=== PATIENT | male | born 1990 | race Caucasian/White ===

== ENCOUNTER 2017-04-26 15:21 | Emergency (ER) | payer SELFPAY ==
[2017-04-26 15:33] VITALS: BP 115/75
--- NOTE | 2017-04-26 15:41 | ED Physician Documentation ---
PD HPI UPPER EXT INJURY - Stated complaint Stated Complaint: HAND PX - Chief complaint Chief Complaint: Ext Problem - History obtained from History obtained from: Patient, Family - History of Present Illness Location: Right, Hand Type of injury: Other (punched a wall) Timing - onset: How many days ago (6) Timing - duration: Days (6) Timing - details: Abrupt onset Pain level max: 9 Pain level now: 6 Improved by: Rest, Ice, Immobilization Worsened by: Moving, Palpating Associated symptoms: No: Weakness, Numbness, Tingling, Swelling, Discolored Similar symptoms before: Has not had sx before Recently seen: Not recently seen Review of Systems Constitutional: denies: Fever, Chills Cardiac: denies: Chest pain / pressure Respiratory: denies: Cough GI: denies: Abdominal Pain, Nausea, Vomiting, Diarrhea Skin: denies: Rash Musculoskeletal: denies: Neck pain, Back pain Neurologic: denies: Headache PD PAST MEDICAL HISTORY - Past Medical History Past Medical History: No - Past Surgical History Past Surgical History: Yes - Present Medications Home Medications: Ambulatory Orders Medication Instructions Recorded Confirmed No Known Home Medications [No 04/26/17 04/26/17 Known Home Medications] - Allergies Allergies/Adverse Reactions: Allergies Allergy/AdvReac Type Severity Reaction Status Date / Time amoxicillin trihydrate * Allergy Unknown unknown Verified 01/20/13 17:16 [From Augmentin] potassium clavulanate * Allergy Unknown unknown Verified 01/20/13 17:16 [From Augmentin] - Living Situation Living Situation: reports: With family Living Arrangement: reports: At home - Social History Does the pt smoke?: No Smoking Status: Never smoker Does the pt drink ETOH?: Yes Does the pt have substance abuse?: No - POLST Patient has POLST: No PD ED PE NORMAL - Vitals Vital signs reviewed: Yes - General General: Alert and oriented X 3, No acute distress - Derm Derm: Warm and dry - Extremities Extremities: Other (TTP R hand 4th and 5th MCP joints. NVI. no deformity. o/w normal exam of the R hand and wrist. ) - Neuro Neuro: Alert and oriented X 3 - Psych Psych: Normal mood, Normal affect Results - Vitals Vitals: Vital Signs - 24 hr 04/26/17 15:30 Temperature 36.9 C Heart Rate 114 H Respiratory 16 Rate Blood Pressure 115/75 O2 Saturation 99 Oxygen O2 Source Room air - Rads (name of study) R hand xray Radiology: Prelim report reviewed, EMP read contemporaneously, See rad report ( normal) Procedures - Splint (location) R hand Splint applied by: Physician, Tech Type of splint: Fiberglass, Short arm, Volar cock up Other: Patient tolerated well, No complications, Neurovascular intact PD MEDICAL DECISION MAKING - ED course Complexity details: reviewed results, re-evaluated patient, considered differential, d/w patient ED course: Patient is a 27-year-old male who presents to the emergency department after punching a brick wall several days ago and now complaining of pain to the right hand. No acute findings on x-ray. Placed in a splint for comfort. Neurovascularly intact. Patient counseled regarding signs and symptoms for which I believe and urgent re-evaluation would be necessary. Patient with good understanding of and agreement to plan and is comfortable going home at this time This document was made in part using voice recognition software. While efforts are made to proofread this document, sound alike and grammatical errors may occur. Departure - Departure Disposition: 01 Home, Self Care Clinical Impression: Contusion of hand, right Qualifiers: Encounter type: initial encounter Qualified Code(s): S60.221A - Contusion of right hand, initial encounter Condition: Good Instructions: ED Contusion Hand Follow-Up: your,doctor in 1 week [Other] Comments: You can use motrin or tylenol for pain. Wear the splint for the next 2-3 days and then remove it. Return if you worsen. Forms: Activity restrictions Discharge Date/Time: 04/26/17 16:53
--- NOTE | 2017-04-26 16:23 | XRAY Preliminary Report ---
Exam: XR Hand 3 View RT IMPRESSION: No evidence for acute fracture. [facility] SITE ID: [id number]
--- NOTE | 2017-04-26 16:26 | XRAY Report ---
EXAM: RIGHT HAND RADIOGRAPHY EXAM DATE: 04/26/2017 03:58 PM. CLINICAL HISTORY: Patient punched a wall 6 days ago. Pain in the distal fourth and fifth metacarpals. COMPARISON: Right second digit 02/07/2007. TECHNIQUE: 3 views. FINDINGS: Bones: Small bone island at the trapezium. No evidence for acute fracture. Joints: Normal. No subluxations. Soft Tissues: Normal. No soft tissue swelling. IMPRESSION: No evidence for acute fracture. [facility] Referring Provider Line: [phone] SITE ID: [id number]
== END 2017-04-26 16:53 | disposition home or self-care (01) ==
LOC: ED 15:21
DX: S60.221A Contusion of right hand, initial encounter (principal); W22.09XA Striking against other stationary object, initial encounter
CPT/HCPCS: 29125; 99283

== ENCOUNTER 2018-11-08 07:53 | Emergency (ER) | payer SELFPAY ==
[2018-11-08 08:01] VITALS: BP 133/83
--- NOTE | 2018-11-08 08:06 | ED Physician Documentation ---
History of Present Illness - Stated complaint Stated Complaint: COUGH/THROAT PX - Chief complaint Chief Complaint: Heent - History obtained from History obtained from: Patient - History of Present Illness Pain level max: 2 - Additonal information Additional information: Patient is a previously healthy 28-year-old male who has been battling viral- like symptoms off and on for the past 1-2 months. Patient does report sick contacts and his roommate. Patient reports intermittent nasal congestion, sore throat, and phlegm producing cough.He denies ear pain, sinus pain, significant abdominal pain, vomiting, urinary or stool changes.Patient did not take his temperature, but feels that he did have fever and chills previously.Patient continues to smoke marijuana, although this has decreased since his symptoms began. No other improving or worsening factors noted. Review of Systems Ten Systems: 10 systems reviewed and negative Constitutional: reports: Fever, Chills Ears: denies: Ear pain Nose: reports: Congestion Throat: reports: Sore throat Respiratory: reports: Dyspnea, Cough GI: denies: Abdominal Pain, Vomiting, Diarrhea : denies: Dysuria PD PAST MEDICAL HISTORY - Past Medical History Past Medical History: No - Past Surgical History Past Surgical History: Yes - Present Medications Home Medications: Ambulatory Orders Medication Instructions Recorded Confirmed No Known Home Medications 04/26/17 11/08/18 - Allergies Allergies/Adverse Reactions: Allergies Allergy/AdvReac Type Severity Reaction Status Date / Time amoxicillin trihydrate * Allergy Unknown unknown Verified 11/08/18 08:01 [From Augmentin] potassium clavulanate * Allergy Unknown unknown Verified 11/08/18 08:01 [From Augmentin] - Social History Does the pt smoke?: No Smoking Status: Never smoker Does the pt drink ETOH?: Yes Does the pt have substance abuse?: No Substance Use and Type: Marijuana - POLST Patient has POLST: No PD ED PE NORMAL - General General: Alert and oriented X 3, No acute distress, Well developed/nourished - HEENT HEENT: Atraumatic, Moist mucous membranes, Pharynx benign, Dentition benign, Other (No sinus pain with palpation) - Neck Neck: Supple, no meningeal sign - Cardiac Cardiac: RRR, No murmur - Respiratory Respiratory: No respiratory distress, Clear bilaterally - Abdomen Abdomen: Soft, Non tender, Non distended - Derm Derm: Normal color, Warm and dry, No rash - Extremities Extremities: No deformity - Neuro Neuro: Alert and oriented X 3, No motor deficit, No sensory deficit, Normal speech - Psych Psych: Normal mood, Normal affect Results - Vitals Vitals: Vital Signs - 24 hr 11/08/18 07:58 Temperature 36.4 C L Heart Rate 95 Respiratory 14 Rate Blood Pressure 133/83 H O2 Saturation 99 Oxygen O2 Source Room air PD MEDICAL DECISION MAKING - ED course Complexity details: considered differential, d/w patient ED course: Most concerning for viral illness, bronchitis, URI given patient's duration of symptoms, consolation of symptoms, and physical exam findings. Do not have high suspicion for otitis media, otitis externa, mastoiditis, sinusitis, pharyngitis, tonsillitis, or peritonsillar abscess.Also have lower suspicion for pneumonia, but given patient's concern for possible walking pneumonia as he has had this in the past, offered chest x-ray, which patient declined. Otherwise, do not feel that patient is experiencing systemic illness that require further intervention at this time. Feel that supportive cares and discharge are appropriate. Patient voiced understanding and is comfortable with discharge plan. Departure - Departure Disposition: 01 Home, Self Care Clinical Impression: Viral respiratory illness, Bronchitis Condition: Good Instructions: Bronchitis Acute Dc, ED URI Viral Follow-Up: your,doctor [Other] - Within 3 Days Comments: Recommend supportive cares such as [id number] medications like ibuprofe n/Tylenol, nasal decongestants, Mucinex, DayQuil, NyQuil, Sudafed, used appropriately.Rest and hydration, as well as avoidance of all smoking, including marijuana. Please follow-up with your primary care physician in next 2-3 days and return to ED sooner if experience worsening symptoms or other concerns. Discharge Date/Time: 11/08/18 08:21
== END 2018-11-08 08:21 | disposition home or self-care (01) ==
LOC: ED 07:53
DX: J40 Bronchitis, not specified as acute or chronic (principal); B97.89 Other viral agents as the cause of diseases classified elsewhere
CPT/HCPCS: 99281; 99283

== ENCOUNTER 2021-07-23 08:34 | Emergency (ER) | payer MEDICAID ==
[2021-07-23 08:57] VITALS: BP 129/76
--- NOTE | 2021-07-23 10:00 | ED Physician Documentation ---
PD HPI HEENT - Stated complaint Stated Complaint: EAR PX/PRESSURE - Chief complaint Chief Complaint: Heent - History obtained from History obtained from: Patient - History of Present Illness Timing - onset: How many days ago (2-3) Timing - duration: Days (2-3) Timing - details: Gradual onset Location: Right ear (has had pressure and fullness right ear for 2-3 days, and has yellow drainage the past day. 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 Usually normal hearing. ) - Past Surgical History Past Surgical History: Yes - Present Medications Home Medications: Ambulatory Orders Medication Instructions Recorded Confirmed Cetirizine [ZyrTEC] 10 mg PO DAILY #15 tablet 07/23/21 cephALEXin [Keflex] 500 mg PO TID #20 cap 07/23/21 - Allergies Allergies/Adverse Reactions: Allergies Allergy/AdvReac Type Severity Reaction Status Date / Time amoxicillin trihydrate * Allergy Unknown unknown Verified 07/23/21 08:54 [From Augmentin] potassium clavulanate * Allergy Unknown unknown Verified 07/23/21 08:54 [From Augmentin] - Social History Does the pt smoke?: No Smoking Status: Never smoker Does the pt drink ETOH?: Yes Does the pt have substance abuse?: No - POLST Patient has POLST: No PD ED PE NORMAL - Vitals Vital signs reviewed: Yes - General General: Alert and oriented X 3, No acute distress, Well developed/nourished - HEENT HEENT: Pharynx benign. No: Ears normal (left ear normal, with chronic small hole. some wax in canal. Right ear with fullness and cloudy fluid behind TM, with small hole as well but only minimal drainage appearance in canal. No wax. ) - Neck Neck: Supple, no meningeal sign, No adenopathy Results - Vitals Vitals: Oxygen O2 Source Room air PD MEDICAL DECISION MAKING - ED course Complexity details: considered differential, d/w patient Departure - Departure Disposition: 01 Home, Self Care Clinical Impression: Right otitis media Qualifiers: Otitis media type: suppurative Chronicity: acute Recurrence: non-recurrent Spontaneous tympanic membrane rupture: without spontaneous rupture Qualified Code(s): H66.001 - Acute suppurative otitis media without spontaneous rupture of ear drum, right ear Condition: Stable Record reviewed to determine appropriate education?: Yes Instructions: ED Otitis Media Acute Adult Follow-Up: Salvador Alejandre MD [Primary Care Provider] - Prescriptions: cephALEXin [Keflex] 500 mg PO TID #20 cap Cetirizine [ZyrTEC] 10 mg PO DAILY #15 tablet Comments: You do have fluid collected that looks cloudy/purulent behind the eardrum on the right. The small hole in the eardrum that you have had does look like it would allow for some drainage of the fluid but not freely so some has remained trapped. He received initial dose of antibiotic and antihistamine as well as an anti- inflammatory here. Continue with the antihistamine and antibiotics as prescribed for the ear infection. Tylenol or ibuprofen as needed for pains. I transmitted your prescription to [facility] pharmacy in [place]. Recheck if not improved well over the next several days and resolved by 4 to 5 days. Discharge Date/Time: 07/23/21 10:32
[2021-07-23] MEDS ORDERED: DEXAMETHASONE 10 MG/ML VIAL PO STA (10:09)
[2021-07-23] MEDS ORDERED: cephALEXin 250 MG CAPSULE PO STA (10:09)
[2021-07-23] MEDS ORDERED: CHERRY SYRUP 10 ML UDC PO ONE (10:09)
[2021-07-23] MEDS ORDERED: CETIRIZINE 10 MG TABLET PO STA (10:09)
== END 2021-07-23 10:32 | disposition home or self-care (01) ==
LOC: ED 08:34
DX: H66.001 Acute suppurative otitis media without spontaneous rupture of ear drum, right ear (principal)
CPT/HCPCS: 99282; 99283; A9270

== ENCOUNTER 2022-04-26 00:33 | Emergency (ER) | payer MEDICAID ==
[2022-04-26] MEDS ORDERED: IPRATROPIUM/ALBUTEROL 3 ML NEB INH STA (00:51)
[2022-04-26] MEDS ORDERED: DEXAMETHASONE 10 MG/ML VIAL IM STA (00:51)
--- NOTE | 2022-04-26 00:54 | ED Physician Documentation ---
PD HPI DYSPNEA - Stated complaint Stated Complaint: COUGH, CON'T RESP SX - Chief complaint Chief Complaint: Resp - History obtained from History obtained from: Patient - Additional information Additional information: The patient returns to the emergency department chief complaint of ongoing dyspnea and tight cough for the last approximately 6 days. The patient was seen here about 3 days ago for similar symptoms and at that time, had a negative x- ray and declined to have a viral panel done. The patient had already taken a COVID test prior to coming in and that was negative. The patient states he has not had any fevers or chills and the congestion that he initially had has subsided. However, he still feels as though his breathing is tight and he just keeps having a dry cough. He has been taking the nasal decongestants and cough medicine that he was prescribed, without any improvement. He states he smokes marijuana but not cigarettes. He was apparently diagnosed with asthma as an and young child but has not used an inhaler since. No other complaints at this time. Review of Systems Ten Systems: 10 systems reviewed and negative Constitutional: reports: Reviewed and negative Eyes: reports: Reviewed and negative Ears: reports: Reviewed and negative Nose: reports: Reviewed and negative Throat: reports: Reviewed and negative Cardiac: reports: Reviewed and negative Respiratory: reports: Dyspnea, Cough GI: reports: Reviewed and negative : reports: Reviewed and negative Skin: reports: Reviewed and negative Musculoskeletal: reports: Reviewed and negative Neurologic: reports: Reviewed and negative Psychiatric: reports: Reviewed and negative Endocrine: reports: Reviewed and negative Immunocompromised: reports: Reviewed and negative PD PAST MEDICAL HISTORY - Past Medical History Past Medical History: Yes Cardiovascular: None Respiratory: None Neuro: None Endocrine/Autoimmune: None GI: None : None HEENT: Other Psych: None Musculoskeletal: None Derm: None Other Past Medical History: Smokes marijuana daily but not recently. - Past Surgical History Past Surgical History: Yes - Present Medications Home Medications: Ambulatory Orders Medication Instructions Recorded Confirmed Benzonatate [Tessalon] 200 mg PO TID PRN #30 cap 04/21/22 04/26/22 Oxymetazoline HCl [Afrin] 15 ml NS Q4HR #15 ml 04/21/22 04/26/22 Pseudoephedrine [Sudafed] 30 mg PO Q6H #30 tablet 04/21/22 04/26/22 Albuterol Sulf [Ventolin Hfa 1 - 2 puffs INH Q4HR PRN #1 gm 04/26/22 Inhaler] predniSONE [Deltasone] 60 mg PO DAILY 5 Days #15 tablet 04/26/22 - Allergies Allergies/Adverse Reactions: Allergies Allergy/AdvReac Type Severity Reaction Status Date / Time amoxicillin trihydrate * Allergy Unknown unknown Verified 04/26/22 00:45 [From Augmentin] potassium clavulanate * Allergy Unknown unknown Verified 04/26/22 00:45 [From Augmentin] - Social History Does the pt smoke?: No Smoking Status: Never smoker Does the pt drink ETOH?: Yes Does the pt have substance abuse?: Yes - Immunizations Immunizations are current?: Yes - POLST Patient has POLST: No PD ED PE NORMAL - Vitals Vital signs reviewed: Yes - General General: Alert and oriented X 3, No acute distress, Well developed/nourished, Other (The patient is a frequent short, dry cough, but is in no distress) - HEENT HEENT: Atraumatic, PERRL, EOMI, Moist mucous membranes - Neck Neck: Supple, no meningeal sign - Cardiac Cardiac: RRR, No murmur, Strong equal pulses - Respiratory Respiratory: No respiratory distress, Other (Moderate expiratory wheezes throughout bilateral lower two thirds of lung ren.) - Abdomen Abdomen: Soft, Non tender, Non distended - Derm Derm: Normal color, Warm and dry, No rash - Extremities Extremities: No deformity, No edema - Neuro Neuro: Alert and oriented X 3 - Psych Psych: Normal mood, Normal affect Results - Vitals Vitals: Vital Signs - 24 hr 04/26/22 04/26/22 04/26/22 00:35 01:00 01:29 Temperature 36.6 C Heart Rate 135 H 112 H 109 H Respiratory 24 22 18 Rate Blood Pressure 116/74 121/85 H O2 Saturation 95 93 Oxygen O2 Source Room air PD MEDICAL DECISION MAKING - ED course Complexity details: considered differential, d/w patient ED course: The patient was treated with DuoNeb and Decadron in the emergency department. The patient was clinically improved and displayed improved oxygen saturation. I felt he was stable for discharge home. We have discussed the need to waste picker the inhaler and steroid prescriptions that I have provided for him, and to get on these medications. We have discussed the usual indications for return. Departure - Departure Disposition: 01 Home, Self Care Clinical Impression: Acute bronchospasm Upper respiratory infection Qualifiers: URI type: unspecified viral URI Qualified Code(s): J06.9 - Acute upper respiratory infection, unspecified Condition: Stable Instructions: ED Reactive Airway Disease, ED Viral Syndrome Prescriptions: Albuterol Sulf [Ventolin Hfa Inhaler] 1 - 2 puffs INH Q4HR PRN #1 gm PRN Reason: Shortness Of Air/Wheezing predniSONE [Deltasone] 60 mg PO DAILY 5 Days #15 tablet Comments: You have been treated tonight with a nebulizer treatment and a dose of steroids, and given a prescription for the same which has been electronically transmitted to the [facility] pharmacy in [place]. The underlying cause of this bout of symptoms is a viral illness, but you most likely still have a propensity to spasm of your airways, much like what happens and asthma. The irritation from the infection that you have is most likely triggered your airways to spasm somewhat, causing the ongoing dry cough and shortness of breath. You should use the inhaler every 4 hours to help keep your airways open and also take the steroid every day as directed. This should help relieve the symptoms you are having. Please also do not smoke anything but rather, put only air into your lungs. This will help prevent such symptoms from occurring in the future. Forms: Activity restrictions
[2022-04-26 01:32] VITALS: BP 121/85
== END 2022-04-26 01:35 | disposition home or self-care (01) ==
LOC: ED 00:33
DX: J06.9 Acute upper respiratory infection, unspecified (principal); J98.01 Acute bronchospasm
CPT/HCPCS: 94640; 96372; 99283

== ENCOUNTER 2022-09-09 07:08 | Emergency (ER) | payer MEDICAID ==
[2022-09-09 07:21] VITALS: BP 152/96
--- NOTE | 2022-09-09 08:04 | ED Physician Documentation ---
PD HPI UPPER EXT INJURY - Stated complaint Stated Complaint: RT HAND PX - Chief complaint Chief Complaint: Ext Problem - History obtained from History obtained from: Patient - History of Present Illness Location: Right, Finger (thumb and index) Type of injury: Other (repetative use at work) Where injury occurred: Work Timing - onset: How many weeks ago (2) Timing - duration: Weeks (2) Timing - details: Gradual onset, Still present Improved by: Rest, Immobilization Worsened by: Moving, Palpating Associated symptoms: No: Weakness, Numbness, Tingling, Swelling, Discolored Similar symptoms before: Has not had sx before Recently seen: Not recently seen - Additonal information Additional information: 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 He has had symptoms now for about 2 weeks he is noted that when he was home for the weekend his symptoms improved. His boss is asked him to come in to be evaluated. Review of Systems Constitutional: denies: Fever Respiratory: denies: Cough GI: denies: Vomiting Skin: denies: Rash Musculoskeletal: reports: Extremity pain, Joint pain. denies: Extremity swelling, Joint swelling Neurologic: denies: Generalized weakness, Focal weakness, Numbness PD PAST MEDICAL HISTORY - Past Medical History Cardiovascular: None Respiratory: None Neuro: None Endocrine/Autoimmune: None GI: None : None HEENT: Other Psych: None Musculoskeletal: None Derm: None - Past Surgical History Past Surgical History: Yes - Present Medications Home Medications: Ambulatory Orders Medication Instructions Recorded Confirmed Benzonatate [Tessalon] 200 mg PO TID PRN #30 cap 04/21/22 04/26/22 Oxymetazoline HCl [Afrin] 15 ml NS Q4HR #15 ml 04/21/22 04/26/22 Pseudoephedrine [Sudafed] 30 mg PO Q6H #30 tablet 04/21/22 04/26/22 Albuterol Sulf [Ventolin Hfa 1 - 2 puffs INH Q4HR PRN #1 gm 04/26/22 Inhaler] predniSONE [Deltasone] 60 mg PO DAILY 5 Days #15 tablet 04/26/22 - Allergies Allergies/Adverse Reactions: Allergies Allergy/AdvReac Type Severity Reaction Status Date / Time amoxicillin trihydrate * Allergy Unknown unknown Verified 09/09/22 07:21 [From Augmentin] potassium clavulanate * Allergy Unknown unknown Verified 09/09/22 07:21 [From Augmentin] - Social History Does the pt smoke?: No Smoking Status: Never smoker Does the pt drink ETOH?: Yes Does the pt have substance abuse?: Yes - Immunizations Immunizations are current?: Yes - POLST Patient has POLST: No PD ED PE NORMAL - Vitals Vital signs reviewed: Yes (tachy and hypertensive ) - General General: Alert and oriented X 3, No acute distress, Well developed/nourished - HEENT HEENT: Atraumatic, PERRL, EOMI - Respiratory Respiratory: No respiratory distress - Derm Derm: Normal color, Warm and dry, No rash - Extremities Extremities: No deformity, No edema, Other (There is mild tenderness over the extensor tendon of the thumb extending into the forearm. There is mild tenderness over the dorsum of the hand approximately over the extensor tendon of the finger as well. Distal neurovascular intact.) - Neuro Neuro: Alert and oriented X 3, legal administrative secretary 2-12 intact, No motor deficit, No sensory deficit, Normal speech Eye Opening: Spontaneous Motor: Obeys Commands Verbal: Oriented GCS Score: 15 - Psych Psych: Normal mood, Normal affect Results - Vitals Vitals: Vital Signs - 24 hr 09/09/22 07:19 Temperature 36.8 C Heart Rate 113 H Respiratory 20 Rate Blood Pressure 152/96 H O2 Saturation 98 Oxygen O2 Source Room air - Rads (name of study) hand Radiology: Prelim report reviewed (Impression: No acute radiographic findings. If pain persist, consider repeat imaging in 5 to 7 days to exclude occult fracture.), EMP read indepedently PD Medical Decision Making - ED course Complexity details: reviewed results, re-evaluated patient, considered differential, d/w patient ED course: 30-year-old male with repetitive use injury to his right hand appears to have some tendinitis and he is placed into a thumb spica and given a dose of dexamethasone. I have provided a 5-day work note for the patient. Departure - Departure Disposition: 01 Home, Self Care Clinical Impression: Tendinitis, de Quervain's Condition: Stable Instructions: ED De Quervain Tenosynovitis Follow-Up: [facility] [Provider Group] Comments: Puma today it looks like you have irritated the tendon sheaths to your thumb and forefinger with repetitive use. The recommendation is to decrease the use and we have placed you into a thumb spica splint. We have given you a dose of dexamethasone which should help today in the next 2 days. My recommendation is to take about 5 days off of work and reduce the total amount of time you are doing this repetitive task during the day. Forms: Activity restrictions Discharge Date/Time: 09/09/22 08:24
[2022-09-09] MEDS ORDERED: CHERRY SYRUP 10 ML UDC PO ONE (08:10)
[2022-09-09] MEDS ORDERED: DEXAMETHASONE 10 MG/ML VIAL PO STA (08:10)
--- NOTE | 2022-09-09 08:20 | XRAY Report ---
PROCEDURE: Hand 3 View RT INDICATIONS: Trauma TECHNIQUE: 3 views of the hand(s) acquired. COMPARISON: 3 views of the right hand dated 04/26/2017 FINDINGS: Bones: No fractures or dislocations. No suspicious bony lesions. Soft tissues: No suspicious soft tissue calcifications. IMPRESSION: No acute radiographic findings. If pain persists, consider repeat imaging in 5-7 days to exclude occu lt fracture. Reviewed by: Nidia Garcia MD on 09/09/2022 8:19 AM [facility] Approved by: Nidia Garcia MD on 09/09/2022 8:19 AM [facility] Station ID: [id number]
== END 2022-09-09 08:24 | disposition home or self-care (01) ==
LOC: ED 07:08
DX: M65.4 Radial styloid tenosynovitis [de Quervain] (principal); M77.8 Other enthesopathies, not elsewhere classified
CPT/HCPCS: 73130; 99283; A9270

== ENCOUNTER 2022-11-14 09:01 | Emergency (ER) | payer MEDICAID ==
[2022-11-14] MEDS ORDERED: guaiFENesin/DEXTROMETHORPHAN 10 ML UDC PO STA (11:30)
[2022-11-14 11:42] VITALS: BP 121/74
--- NOTE | 2022-11-14 11:42 | XRAY Report ---
PROCEDURE: Chest 1 View X-Ray INDICATIONS: cough/rib pain TECHNIQUE: One view of the chest was acquired. COMPARISON: 04/13/2022. FINDINGS: Surgical changes and devices: None. Lungs and pleura: No pleural effusions or pneumothorax. Lungs are clear. Mediastinum: Mediastinal contours appear normal. Heart size is normal. Bones and chest wall: No suspicious bony lesions. Overlying soft tissues appear unremarkable. IMPRESSION: Chest without acute cardiopulmonary abnormalities or focal airspace disease. Reviewed by: Conrado Hadley MD on 11/14/2022 11:41 AM PDT Approved by: Conrado Hadley MD on 11/14/2022 11:41 AM PDT Station ID: [id number]
--- NOTE | 2022-11-14 11:46 | ED Physician Documentation ---
History of Present Illness - Stated complaint Stated Complaint: COUGH/FATIGUE - Chief complaint Chief Complaint: General - History obtained from History obtained from: Patient - Additonal information Additional information: Patient is a 32-year-old male with no significant past medical history presenting for evaluation of cough and congestion since last Friday with associated nausea, vomiting and diarrhea that have since improved. Patient states his symptoms started out with a productive cough of clear phlegm. Due to the amount of coughing he was having on Friday he started having vomiting which has since resolved. He also reports looser stools for the past 2 days which have also improved. He denies blood in emesis or stools. He denies feeling dizzy or lightheaded. He has been tolerating p.o. today. He denies chest pain or difficulty breathing. He has missed work the last several days. He has not taken a home COVID test. He has tried some [id number] medications for his cough without significant improvement. He denies tobacco use but does use marijuana but has not been able to smoke in the past week since he has been ill.He reports a coworker has recently been ill with similar symptoms. Review of Systems Constitutional: denies: Fever Nose: reports: Congestion Cardiac: denies: Chest pain / pressure Respiratory: reports: Cough. denies: Dyspnea GI: denies: Abdominal Pain : denies: Dysuria Neurologic: denies: Headache PD PAST MEDICAL HISTORY - Past Medical History Cardiovascular: None Respiratory: None Neuro: None Endocrine/Autoimmune: None GI: None : None HEENT: Other Psych: None Musculoskeletal: None Derm: None - Past Surgical History Past Surgical History: Yes - Present Medications Home Medications: Ambulatory Orders Medication Instructions Recorded Confirmed Albuterol Sulf [Ventolin Hfa 1 - 2 puffs INH Q4HR PRN #18 gm 11/14/22 Inhaler] Benzonatate [Tessalon] 200 mg PO QID PRN #15 cap 11/14/22 - Allergies Allergies/Adverse Reactions: Allergies Allergy/AdvReac Type Severity Reaction Status Date / Time amoxicillin trihydrate * Allergy Unknown unknown Verified 09/09/22 07:21 [From Augmentin] potassium clavulanate * Allergy Unknown unknown Verified 09/09/22 07:21 [From Augmentin] - Social History Does the pt smoke?: No Smoking Status: Never smoker Does the pt drink ETOH?: Yes Does the pt have substance abuse?: Yes Substance Use and Type: Marijuana - Immunizations Immunizations are current?: Yes - POLST Patient has POLST: No PD ED PE NORMAL - General General: Alert and oriented X 3, No acute distress, Well developed/nourished - HEENT HEENT: Atraumatic, Moist mucous membranes, Pharynx benign - Neck Neck: Supple, no meningeal sign - Cardiac Cardiac: RRR - Respiratory Respiratory: No respiratory distress, Clear bilaterally - Abdomen Abdomen: Soft, Non tender, Non distended - Derm Derm: Warm and dry - Extremities Extremities: No edema - Neuro Neuro: Normal speech Results - Vitals Vitals: Vital Signs - 24 hr 11/14/22 11/14/22 09:09 11:42 Temperature 36.9 C 36.7 C Heart Rate 94 83 Respiratory 18 18 Rate Blood Pressure 136/76 H 121/74 O2 Saturation 97 95 Oxygen O2 Source Room air - Labs Labs: Laboratory Tests 11/14/22 11:09 SARS-CoV-2 (PCR) NOT DETECTED PD Medical Decision Making - ED course Complexity details: reviewed results, re-evaluated patient ED course: Pt with < 1 week of URI symptoms. Vital signs are stable. His respiratory exam is benign. Chest x-ray was obtained which I reviewed and is unremarkable with no signs of pneumonia, effusion, pneumothorax.A COVID test is pending. Discussed options for treatment and patient is agreeable to trial of albuterol inhaler for coughing fits as well as tessalon perles. Patient is tolerating p.o. His abdominal exam is benign. Suspect that his symptoms are likely related to a viral illness and do not think labs are necessary at this time as he is tolerating p.o. and has stable vitals. Patient is counseled on continued supportive care as well as concerning symptoms to return for. Departure - Departure Disposition: 01 Home, Self Care Clinical Impression: URI (upper respiratory infection) Condition: Stable Instructions: ED URI Viral Prescriptions: Albuterol Sulf [Ventolin Hfa Inhaler] 1 - 2 puffs INH Q4HR PRN #18 gm PRN Reason: Shortness Of Air/Wheezing Benzonatate [Tessalon] 200 mg PO QID PRN #15 cap PRN Reason: Cough Comments: Your symptoms are likely related to a virus. Your chest x-ray does not show signs of pneumonia which would be treated with antibiotics.Your COVID test is still pending. Please continue with staying hydrated and getting plenty of rest. I have sent 2 prescriptions to [facility] in [place] that may help you with your symptoms which include a cough medication called Tessalon. In addition I have also sent an albuterol inhaler. I would expect her symptoms to get better over the course of the next week. However if you have any worsening symptoms such as feeling short of air, vomiting, chest pain please consider return to the emergency department. Forms: Activity restrictions Discharge Date/Time: 11/14/22 11:54
== END 2022-11-14 11:54 | disposition home or self-care (01) ==
LOC: ED 09:01
DX: J06.9 Acute upper respiratory infection, unspecified (principal); Z20.822 Contact with and (suspected) exposure to COVID-19
CPT/HCPCS: 71045; 87635; 99283; 99284; A9270

== ENCOUNTER 2024-03-05 05:29 | Emergency (ER) | payer SELFPAY ==
[2024-03-05 05:51] VITALS: BP 128/82; O2SAT 99
--- NOTE | 2024-03-05 05:57 | ED Physician Documentation ---
PD HPI UPPER EXT INJURY - Stated complaint Stated Complaint: R SHOULDER PX - Chief complaint Chief Complaint: Trauma Ext - History obtained from History obtained from: Patient - Additonal information Additional information: 34-year-old male presents for right shoulder pain. He states that this morning when he woke up he stretched and felt like something strained in his shoulder. 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 No medications taken prior to arrival. Review of Systems Musculoskeletal: reports: Joint pain. denies: Extremity pain, Extremity swelling PD PAST MEDICAL HISTORY - Past Medical History Cardiovascular: None Respiratory: None Neuro: None Endocrine/Autoimmune: None GI: None : None HEENT: Other Psych: None Musculoskeletal: None Derm: None - Past Surgical History Past Surgical History: Yes - Present Medications Home Medications: Ambulatory Orders Medication Instructions Recorded Confirmed Albuterol Sulf [Ventolin Hfa 1 - 2 puffs INH Q4HR PRN #18 gm 11/14/22 Inhaler] Benzonatate [Tessalon] 200 mg PO QID PRN #15 cap 11/14/22 - Allergies Allergies/Adverse Reactions: Allergies Allergy/AdvReac Type Severity Reaction Status Date / Time amoxicillin trihydrate * Allergy Unknown unknown Verified 03/05/24 05:32 [From Augmentin] potassium clavulanate * Allergy Unknown unknown Verified 03/05/24 05:32 [From Augmentin] - Social History Does the pt smoke?: No Smoking Status: Never smoker Does the pt drink ETOH?: Yes Does the pt have substance abuse?: Yes - Immunizations Immunizations are current?: Yes - POLST Patient has POLST: No PD ED PE NORMAL - Vitals Vital signs reviewed: Yes - General General: Alert and oriented X 3, No acute distress, Well developed/nourished - Back Back: Other (Palpable muscle spasm right scapular region) - Derm Derm: Normal color, Warm and dry, No rash - Neuro Neuro: Alert and oriented X 3, 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 Palpable muscle spasm paraspinal region. Patient offered a Toradol injection, he declined stating that he does not like shots. Recommended Tylenol, ibuprofen, gentle stretching exercises. Departure - Departure Disposition: 01 Home, Self Care Clinical Impression: Right shoulder strain Qualifiers: Encounter type: initial encounter Qualified Code(s): S46.911A - Strain of unspe cified muscle, fascia and tendon at shoulder and upper arm level, right arm, initial encounter Condition: Stable Instructions: ED Sprain Shoulder Comments: Take 1000 mg of Tylenol and 400 mg of ibuprofen every 4-6 hours as needed for pain. Take no more than 4000 mg of Tylenol total daily. Use gentle stretching exercises as well as heat and/or ice for comfort. Gentle range of motion exercises will also help loosen your muscles. Forms: PCP List Discharge Date/Time: 03/05/24 05:59
== END 2024-03-05 05:59 | disposition home or self-care (01) ==
LOC: ED 05:29
DX: S46.911A Strain of unspecified muscle, fascia and tendon at shoulder and upper arm level, right arm, initial encounter (principal); X50.9XXA Other and unspecified overexertion or strenuous movements or postures, initial encounter; Y93.89 Activity, other specified; Y92.009 Unspecified place in unspecified non-institutional (private) residence as the place of occurrence of the external cause
CPT/HCPCS: 99281; 99283